=== PATIENT | female | born 1990 | race Caucasian/White ===

== ENCOUNTER → 2017-10-24 | Outpatient (REF) | payer MEDICAID ==
[~2017-10-24] MED LIST: ACE3 PO; ACE500 PO; AUG875 PO; BACDS PO; BUPR-472 PO; BUTA1CAP6 PO; HYDR2TAB4 PO; IBU800 PO; IBUP800T37 PO; LOR5 PO; METH0.2T6 PO; METO-734 PO; NO; NO ROUTINE MEDS; PHENA100 PO; PHENA200 PO; PREN-67 PO; PREN-85 PO
[2017-10-24 14:07] LABS: PLATELET COUNT, AUTOMATED 231 K/uL (150-450)
== END ==
LOC: ZZSENDIN 13:02
PROVIDERS: ATTEND Obstetrics & Gynecology
DX: R10.2 Pelvic and perineal pain (principal)
CPT/HCPCS: 85025; 87071; 87077; 87088; 87186

== ENCOUNTER 2018-02-08 08:27 | Emergency (ER) | payer SELFPAY ==
--- NOTE | 2018-02-08 08:28 | ER Report ---
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 Patient is now currently approximately 9 weeks and noticed vaginal bleeding this morning. Patient denies any trauma. She also notes that when she urinates there may be blood as well and has symptoms of increased urinary frequency and suprapubic tenderness. She denies any fevers or chills. She denies any chest pain or shortness of breath. She denies any upper abdominal pain. Patient states her blood type is O- and has received RhoGAM in the past. He lists her OB /FIELD NURSE physician is Dr. Hawthorne REVIEW OF SYSTEMS: Constitutional: No fever, no chills. Eyes: No discharge. ENT: No sore throat. Cardiovascular: No chest pain, no palpitations. Respiratory: No cough, no shortness of breath. Gastrointestinal: Suprapubic abdominal pain Genitourinary: Hematuria/vaginal bleeding; increased urinary frequency Musculoskeletal: No back pain. Skin: No rashes. Neurological: No headache. Allergies: Coded Allergies: penicillin G (Verified Allergy, Intermediate, WHOLE BODY TURNS RED, ) codeine (Verified Allergy, Unknown, 06/05/17) morphine (Verified Allergy, Unknown, 06/05/17) Home Meds Active Scripts Ondansetron Hcl (ZOFRAN) 4 Mg Tablet, 4 MG PO Q8H for Nausea, #15 TAB 0 Refills Prov:KAREN LOCKHART MD 02/08/18 Nitrofurantoin Monohyd/M-Cryst (MACROBID 100 MG CAPSULE) 100 Mg Capsule, 100 MG PO BID for 7 Days, #14 CAPSULE 0 Refills Prov:KAREN LOCKHART MD 02/08/18 Ibuprofen (IBUPROFEN) 800 Mg Tablet, 1 TAB PO Q8H, #30 TAB 0 Refills Take with food every 8 hours. Prov:THIAGO HAWTHORNE MD 06/13/17 Discontinued Reported Medications Bupropion Hcl (WELLBUTRIN XL) 150 Mg Tab.er.24h, 150 MG PO QDAY, TAB 06/10/17 Discontinued Scripts Methylergonovine Mal 0.2 Mg Tab (METHERGINE 0.2 MG TAB) 0.2 Mg Tablet, 0.2 MG PO Q6H, #6 TAB Prov:THIAGO HAWTHORNE MD 06/13/17 Hydromorphone Hcl (HYDROMORPHONE HCL) 2 Mg Tablet, 2-4 MG PO Q4H for PAIN, #20 TAB 0 Refills Prov:THIAGO HAWTHORNE MD 06/13/17 Past Medical/Surgical History Multiparous with last being a twin that ended in a missed , early on in and status post D&C. Hx Smoking: Yes (1 PACK A DAY) Smoking Status: Current: Every Day Smoker Exposure to Second Hand Smoke?: Yes Hx Substance Use Disorder: No Hx Alcohol Use: No Constitutional Vital Sign - Last 24 Hours 02/08/18 02/08/18 02/08/18 08:32 09:58 11:01 Temp 97.9 Pulse 74 77 70 Resp 16 16 B/P (MAP) 122/44 110/72 (85) 102/40 (60) Pulse Ox 97 96 O2 Delivery Room Air Room Air Intake and Output 02/08/18 02/08/18 02/09/18 15:00 23:00 07:00 Output Total 100 ml Balance -100 ml Physical Exam General Appearance: The patient is alert, has no immediate need for airway protection and no signs of toxicity. Eyes: Pupils equal and round no pallor or injection. ENT, Mouth: Mucous membranes are moist. Respiratory: There are no retractions, lungs are clear to auscultation. Cardiovascular: Regular rate and rhythm. Gastrointestinal: There is minor tenderness over the suprapubic region. Neurological: Awake and alert Skin: Warm and dry, no rashes. Musculoskeletal: Neck is supple non tender. Extremities are nontender, nonswollen and have full range of motion. Medical Decision Making Data Points Result Diagram: 02/08/18 1000 02/08/18 0944 Laboratory Hematology Test 02/08/18 09:10 02/08/18 09:44 02/08/18 10:00 Urine Color Red Urine Clarity Slightly-cloudy Urine pH 6.0 pH (4.8-9.5) Urine Specific [place] 1.002 Urine Protein 30 mg/dL (NEGATIVE) Urine Glucose (UA) Negative mg/dL (NEGATIVE) Urine Ketones Negative mg/dL (NEGATIVE) Urine Blood Large (NEGATIVE) Urine Nitrite Negative (NEGATIVE) Urine Bilirubin Negative (NEGATIVE) Urine Urobilinogen Negative mg/dL (0.2-1.9) Urine Leukocyte Esterase Negative (NEGATIVE) Urine RBC 1 /HPF (0-2/HPF) Urine WBC 14 /HPF (0-5/HPF) Urine WBC Clumps Few /HPF Urine Squamous Epithelial Cells Many /LPF (NONE-FEW) Urine Amorphous Crystals Few /HPF Urine Bacteria Few /HPF (NONE-FEW) Urine Mucus None /HPF (NONE-FEW) Sodium Level 138 mmol/L (137-145) Potassium Level 3.8 mmol/L (3.5-5.0) Chloride Level 107 mmol/L (98-107) Carbon Dioxide Level 22 mmol/L (22-31) Blood Urea Nitrogen 8 mg/dl (7-18) Creatinine 0.50 mg/dl (0.52-1.04) Glomerular Filtration Rate Calc > 60.0 Random Glucose 91 mg/dl (75-110) Calcium Level 8.4 mg/dl (8.4-10.2) Total Bilirubin 0.4 mg/dl (0.2-1.3) Aspartate Amino Transf (AST/SGOT) 24 U/L (0-35) Alanine Aminotransferase (ALT/SGPT) 38 U/L (0-56) Alkaline Phosphatase 60 U/L (0-126) Total Protein 6.5 g/dl (6.3-8.2) Albumin 3.4 g/dl (3.5-5.0) Human Chorionic Gonadotropin, Quant 853091 mIU/ml Red Blood Count 4.97 M/uL (4.17-5.56) Mean Corpuscular Volume 82.4 fL (80.0-96.0) Mean Corpuscular Hemoglobin 28.0 pg (26.0-33.0) Mean Corpuscular Hemoglobin Concent 34.0 g/dL (32.0-36.0) Red Cell Distribution Width 15.8 % (11.5-14.5) Mean Platelet Volume 8.0 fL (7.2-11.1) Neutrophils (%) (Auto) 79.6 % (39.4-72.5) Lymphocytes (%) (Auto) 14.0 % (17.6-49.6) Monocytes (%) (Auto) 5.2 % (4.1-12.4) Eosinophils (%) (Auto) 0.5 % (0.4-6.7) Basophils (%) (Auto) 0.7 % (0.3-1.4) Nucleated RBC Relative Count (auto) 0.0 /100WBC Neutrophils # (Auto) 10.0 K/uL (2.0-7.4) Lymphocytes # (Auto) 1.8 K/uL (1.3-3.6) Monocytes # (Auto) 0.7 K/uL (0.3-1.0) Eosinophils # (Auto) 0.1 K/uL (0.0-0.5) Basophils # (Auto) 0.1 K/uL (0.0-0.1) Nucleated RBC Absolute Count (auto) 0.00 K/uL Chemistry Test 02/08/18 09:10 02/08/18 09:44 02/08/18 10:00 Urine Color Red Urine Clarity Slightly-cloudy Urine pH 6.0 pH (4.8-9.5) Urine Specific [place] 1.002 Urine Protein 30 mg/dL (NEGATIVE) Urine Glucose (UA) Negative mg/dL (NEGATIVE) Urine Ketones Negative mg/dL (NEGATIVE) Urine Blood Large (NEGATIVE) Urine Nitrite Negative (NEGATIVE) Urine Bilirubin Negative (NEGATIVE) Urine Urobilinogen Negative mg/dL (0.2-1.9) Urine Leukocyte Esterase Negative (NEGATIVE) Urine RBC 1 /HPF (0-2/HPF) Urine WBC 14 /HPF (0-5/HPF) Urine WBC Clumps Few /HPF Urine Squamous Epithelial Cells Many /LPF (NONE-FEW) Urine Amorphous Crystals Few /HPF Urine Bacteria Few /HPF (NONE-FEW) Urine Mucus None /HPF (NONE-FEW) Glomerular Filtration Rate Calc > 60.0 Calcium Level 8.4 mg/dl (8.4-10.2) Total Bilirubin 0.4 mg/dl (0.2-1.3) Aspartate Amino Transf (AST/SGOT) 24 U/L (0-35) Alanine Aminotransferase (ALT/SGPT) 38 U/L (0-56) Alkaline Phosphatase 60 U/L (0-126) Total Protein 6.5 g/dl (6.3-8.2) Albumin 3.4 g/dl (3.5-5.0) Human Chorionic Gonadotropin, Quant 945971 mIU/ml White Blood Count 12.6 k/uL (4.5-11.0) Red Blood Count 4.97 M/uL (4.17-5.56) Hemoglobin 13.9 g/dL (12.0-16.0) Hematocrit 41.0 % (34.0-47.0) Mean Corpuscular Volume 82.4 fL (80.0-96.0) Mean Corpuscular Hemoglobin 28.0 pg (26.0-33.0) Mean Corpuscular Hemoglobin Concent 34.0 g/dL (32.0-36.0) Red Cell Distribution Width 15.8 % (11.5-14.5) Platelet Count 181 K/uL (150-450) Mean Platelet Volume 8.0 fL (7.2-11.1) Neutrophils (%) (Auto) 79.6 % (39.4-72.5) Lymphocytes (%) (Auto) 14.0 % (17.6-49.6) Monocytes (%) (Auto) 5.2 % (4.1-12.4) Eosinophils (%) (Auto) 0.5 % (0.4-6.7) Basophils (%) (Auto) 0.7 % (0.3-1.4) Nucleated RBC Relative Count (auto) 0.0 /100WBC Neutrophils # (Auto) 10.0 K/uL (2.0-7.4) Lymphocytes # (Auto) 1.8 K/uL (1.3-3.6) Monocytes # (Auto) 0.7 K/uL (0.3-1.0) Eosinophils # (Auto) 0.1 K/uL (0.0-0.5) Basophils # (Auto) 0.1 K/uL (0.0-0.1) Nucleated RBC Absolute Count (auto) 0.00 K/uL Urinalysis Test 02/08/18 09:10 Urine Color Red Urine Clarity Slightly-cloudy Urine pH 6.0 pH (4.8-9.5) Urine Specific [place] 1.002 Urine Protein 30 mg/dL (NEGATIVE) Urine Glucose (UA) Negative mg/dL (NEGATIVE) Urine Ketones Negative mg/dL (NEGATIVE) Urine Blood Large (NEGATIVE) Urine Nitrite Negative (NEGATIVE) Urine Bilirubin Negative (NEGATIVE) Urine Urobilinogen Negative mg/dL (0.2-1.9) Urine Leukocyte Esterase Negative (NEGATIVE) Urine RBC 1 /HPF (0-2/HPF) Urine WBC 14 /HPF (0-5/HPF) Urine WBC Clumps Few /HPF Urine Squamous Epithelial Cells Many /LPF (NONE-FEW) Urine Amorphous Crystals Few /HPF Urine Bacteria Few /HPF (NONE-FEW) Urine Mucus None /HPF (NONE-FEW) ED Course/Re-evaluation Clinical Indication for ER IV: IV Access ED Course 02/08/2018 8:47:15 am plan at this time will be to evaluate for threatened . We will obtain a catheter urine specimen to determine location of the bleeding. Patient is O- so we will do ABO Rh and give appropriate dose of RhoGAM. We'll also perform a formal ultrasound to evaluate for . Re-evaluation 02/08/2018 11:00:00 am patient with viable IUP with normal heart rate no evidence of vaginal fluid collection or blood. My suspicion is the bleeding is coming from a hemorrhagic cystitis based on patient's symptoms along with urinalysis. We will treat her with Macrobid for the next 7 days and have her follow up routinely with her OB. Decision to Disposition Date: Feb 08, 2018 Decision to Disposition Time: 11:01 Depart Departure Latest Vital Signs Vital Signs Date Time Temp Pulse Resp B/P (MAP) Pulse Ox O2 Delivery O2 Flow Rate FiO2 02/08/18 11:01 70 16 102/40 (60) 96 Room Air 02/08/18 08:32 97.9 Impression: Primary Impression: Hemorrhagic cystitis Condition: Improved Disposition: HOME OR SELF-CARE Referrals: BRITTA PLAZA MD (PCP) THIAGO HAWTHORNE MD Follow-up with Dr. Hawthorne for your next routine OB appointment New Scripts Ondansetron Hcl (ZOFRAN) 4 Mg Tablet 4 MG PO Q8H for Nausea, #15 TAB 0 Refills Prov: KAREN LOCKHART MD 02/08/18 Nitrofurantoin Monohyd/M-Cryst (MACROBID 100 MG CAPSULE) 100 Mg Capsule 100 MG PO BID for 7 Days, #14 CAPSULE 0 Refills Prov: KAREN LOCKHART MD 02/08/18 Patient Instructions: Urinary Tract Infection in (ED) KAREN LOCKHART MD Feb 08, 2018 08:28
[2018-02-08 10:09] LABS: PLATELET COUNT, AUTOMATED 181 K/uL (150-450)
[2018-02-08] MEDS ORDERED: NITROFURANTOIN MONO 100 MG PO ONE ×2 (11:00→13:15)
[2018-02-08 11:01] VITALS: BP 102/40
[2018-02-08] MEDS ORDERED: NITR-105 PO (11:04)
[2018-02-08] MEDS ORDERED: ONDA4TAB97 PO (11:05)
--- NOTE | 2018-02-08 11:21 | RADIOLOGY IMAGING REPORT ---
FACILITY: [facility] PATIENT NAME: Lynda Jernigan : 1990 MR: [id number] V: [id number] EXAM DATE: ORDERING PHYSICIAN: KAREN LOCKHART TECHNOLOGIST: Location: Patient: Lynda Jernigan : 1990 Visit/Account:[id number] Date of Sevice: 02/08/2018 OB Ultrasound < 14 weeks Additional Pertinent history: Vaginal bleeding. Early . COMPARISON STUDIES: None available FINDINGS: Gestational sac: intrauterine and unremarkable Yolk sac: Visualized pole: Visualized cardiac activity: 165-170 bpm Estimated gestational age: 9 weeks and one day based on average [place]-rump length of 2.38 cm. BETSY: 09/12/2018 by ultrasound and clinically. Subchorionic hemorrhage: There is small subchorionic hemorrhage adjacent to the right side of the ges tational sac. This measures approximately 2.7 x 0.9 cm. Uterus: gravid, otherwise negative Maternal ovaries: Both ovaries are normal with normal blood flow. Left ovary shows a corpus luteum cy st. Adnexa: No adnexal mass lesion or focal abnormality. Free pelvic fluid: none IMPRESSION: 1. Single live early intrauterine gestation with dates and measurements as above 2. Small subchorionic hemorrhage adjacent to the right side of the gestational sac. Report Dictated By: Milton Rincon at 02/08/2018 11:13 AM Report E-Signed By: Milton Rincon at 02/08/2018 11:16 AM WSN:[id number]
[2018-02-08] MEDS ORDERED: ONDANSETRON 4 MG ODT TH SL ONE (13:15)
== END 2018-02-08 11:15 | disposition home or self-care (01) ==
LOC: ER 09:03
DX: O23.11 Infections of bladder in pregnancy, first trimester (principal); Z3A.09 9 weeks gestation of pregnancy
CPT/HCPCS: 36415; 76817; 81001; 84702; 85025; 86850; 86900; 86901; 87077; 87088; 87186; 99284; A4353; S0119; 82040; 82247; 82310; 82374; 82435; 82565; 82947; 84075; 84132; 84155; 84295; 84450; 84460; 84520

== ENCOUNTER → 2018-07-17 | Outpatient (CLI) | payer MEDICAID ==
[~2018-07-17] MED LIST changes: +CALC-521 PO; +DIPH0.5D12 IM; +NITR-105 PO; +ONDA4TAB97 PO; +PREN-127 PO; +RHO(150015 IM
[2018-07-17 16:54] VITALS: BP 137/68
--- NOTE | 2018-07-17 17:45 | RADIOLOGY IMAGING REPORT ---
FACILITY: [facility] PATIENT NAME: Lynda Jernigan : 1990 MR: [id number] V: [id number] EXAM DATE: [id number] ORDERING PHYSICIAN: VINAY RUBIO TECHNOLOGIST: Location: [facility] Patient: Lnyda Jernigan : 1990 Visit/Account:[id number] Date of Sevice: 07/17/2018 OB Ultrasound > 14 weeks limited. HISTORY: Growth discrepancy. Evaluate REJI and growth. COMPARISON STUDIES: 02/08/2018. FINDINGS: Intrauterine gestations: one presentation: Breech heart rate: 124 bpm Amniotic fluid index: 13.8. cm Largest amniotic fluid pocket 5.9 cm Placenta: Fundal anteriorly without focal abnormality and without previa. However heterogeneous and p ossible small calcifications. Uterus: gravid, otherwise normal Maternal adnexa: Not evaluated Cervix: Not evaluated Gestational Parameters: BPD: 8 point cm 35 weeks and 4 days HC: 31.7 cm 35 weeks and 5 days AC: 32.5 cm 36 weeks and 3 days FL: 6.4 cm 33 weeks and 0 days Average ultrasound age (AUA): 35 weeks and 2 days BETSY: 08/19/2018 by ultrasound and 09/15/2018 clinically. Estimated weight (EFW): 2650 g, 5 pounds and 13 ounces. EFW: Greater than 98 percentile Anatomic Survey: Not performed due to limited exam. IMPRESSION: 1. Single live intrauterine gestation; estimated ultrasound age 35 weeks and 2 days. 2. The estimated weight is greater than 98 percentile. 3. Amniotic fluid index: 13.8. cm Largest amniotic fluid pocket 5.9 cm 4. Other findings and measurements as above. Report Dictated By: Milton Rincon at 07/17/2018 5:38 PM Report E-Signed By: Milton Rincon at 07/17/2018 5:41 PM WSN:[id number]
[2018-07-19 23:16] VITALS: Ht 149.9 cm
== END ==
LOC: L&D 15:32 → OB 15:32 → UNDOADMIN 15:32 → UNDODISIN 18:26 → EDSTATUS 07-20 11:02
PROVIDERS: ATTEND Obstetrics & Gynecology
DX: O26.893 Other specified pregnancy related conditions, third trimester (principal); Z3A.32 32 weeks gestation of pregnancy
CPT/HCPCS: 76815; 80305; 81001; 87081

== ENCOUNTER → 2018-07-19 | Outpatient (CLI) | payer MEDICAID ==
[~2018-07-19] VITALS: Ht 175.3 cm; Wt 104.3 kg
[2018-07-19 20:50] VITALS: BP 135/79
[2018-07-19] MEDS: NIFEdipine 10 MG CAP PO ONE (21:57)
[2018-07-19 23:16] VITALS: Ht 175.3 cm; Wt 104.3 kg
== END ==
LOC: UNDOADMIN 20:46 → L&D 20:46 → OB 20:46 → UNDODISIN 23:07 → EDSTATUS 07-20 11:05
PROVIDERS: ATTEND Obstetrics & Gynecology
DX: O26.893 Other specified pregnancy related conditions, third trimester (principal); Z3A.31 31 weeks gestation of pregnancy
CPT/HCPCS: 59025

== ENCOUNTER → 2018-07-20 | Outpatient (CLI) | payer MEDICAID ==
[2018-07-19 23:16] VITALS: BMI 34.0
[2018-07-20 14:37] LABS: PLATELET COUNT, AUTOMATED 211 K/uL (150-450)
== END ==
LOC: LAB 13:30
PROVIDERS: ATTEND Student in an Organized Health Care Education/Training Program
DX: Z34.92 Encounter for supervision of normal pregnancy, unspecified, second trimester (principal)
CPT/HCPCS: 36415; 82950; 85025; 86703

== ENCOUNTER → 2018-07-21 | Outpatient (CLI) | payer MEDICAID ==
[~2018-07-21] VITALS: Ht 175.3 cm; Wt 166.5 kg
[~2018-07-21] MED LIST changes: +CALCIUM CARBONATE 500 MG CHEW PO ONE; +DLR(*) 1000 ML BAG 1,000 ML IV ONE; +NIFEdipine 10 MG CAP PO ONE; +ONDANSETRON 4 MG/2 ML VIAL IVP ONE
[2018-07-21 22:50] VITALS: BP 154/38; Ht 175.3 cm; Wt 166.5 kg
[2018-07-22] MEDS: LR(*) 1000 ML BAG 1,000 ML IV PRN ×2 (00:43→02:01)
[2018-07-22 00:57] LABS: PLATELET COUNT, AUTOMATED 189 K/uL (150-450)
== END ==
LOC: UNDOADMOB 22:23 → L&D 22:23 → OB 22:23 → UNDODISOB 07-22 02:21 → EDSTATUS 07-24 19:21
PROVIDERS: ATTEND Obstetrics & Gynecology
DX: O36.8131 Decreased fetal movements, third trimester, fetus 1 (principal); Z3A.32 32 weeks gestation of pregnancy
CPT/HCPCS: 36415; 81001; 82040; 82247; 82310; 82374; 82435; 82565; 82570; 82731; 82947; 83615; 84075; 84132; 84155; 84156; 84295; 84450; 84460; 84520; 84550; 85025; G0378; G0379; J2405; J7120

== ENCOUNTER → 2018-08-07 | Outpatient (CLI) | payer MEDICAID ==
[~2018-08-07] VITALS: Ht 175.3 cm; Wt 168.7 kg
[~2018-08-07] MED LIST changes: -CALCIUM CARBONATE 500 MG CHEW PO ONE; -DLR(*) 1000 ML BAG 1,000 ML IV ONE; +FAMOTIDINE 20 MG TAB PO ONE; -NIFEdipine 10 MG CAP PO ONE; -ONDANSETRON 4 MG/2 ML VIAL IVP ONE
[2018-08-07 20:51] LABS: PLATELET COUNT, AUTOMATED 226 K/uL (150-450)
--- NOTE | 2018-08-07 21:25 | History & Physical ---
History of Present Illness Age of Patient: 28 : 9 Para or TPAL: 4044 EDC per LMP: Sep 15, 2018 EDC per U/S: Sep 14, 2018 Estimated Gestational Age: 34.3 Chief Complaint RUQ abdominal pain. History of Present Illness Seen in OB triage due to RUQ abdominal pain, sharp and stabbing without radiation that was intermittent when it started a few weeks ago, now constant for the last week. She called the office earlier this afternoon, but could not come in for an office visit before the office closed. Pain is worse when lying on her side. She denies and spicy or greasy food intolerances, also denies fever, chills, constipation, diarrhea, melena, hematochezia, hematuria, dysuria, urinary urgency or frequency. However, she complains of heartburn the whole , now refractory to TUMS and H2 blockers, and hasn't yet tried PPI's. She also has increased generalized edema (face, hands, and feet) over the last week, and shortness of breath as well. She's had decreased movements of only x1-2 per day the last few days, although patient's nurse has noted activity while trying to obtain an adequate FHR monitor strip. She's also had irregular contractions, but denies any recent vaginal mucous or fluid leakage. History Patient's Blood Type: O Negative Rubella Status: Immune Group B Strep Screen: Unknown Obstetrical History: 4 vaginal deliveries between 37 and 41 weeks, the last complicated by PP hemorrhage, and 4 early spontaneous Ab's. Past Medical History: Hx depression, also abnormal Paps, s/p cervical LEEP. Post appendectomy and tonsillectomy. Allergies: Coded Allergies: penicillin G (Verified Allergy, Intermediate, WHOLE BODY TURNS RED, 06/05/17) codeine (Verified Allergy, Unknown, 06/05/17) morphine (Verified Allergy, Unknown, 06/05/17) Social History: Engaged to be , partner not present. Recently quit smoking cigarettes, denies use of alcohol or illicit drugs. Family History: FH: anemia MOTHER FH: cancer MOTHER FH: type 2 diabetes MOTHER Med Rec Home Meds Active Scripts Ondansetron Hcl (ZOFRAN) 4 Mg Tablet, 4 MG PO Q8H for Nausea, #15 TAB 0 Refills Prov:KAREN LOCKHART MD 02/08/18 Reported Medications Vits W-Ca,Fe,Fa(<1MG) ( VITAMINS) 1 Each Tablet, 1 EACH PO DAILY, TAB 07/22/18 Calcium Carbonate (TUMS) 300 Mg Tab.chew, 300 MG PO, TAB.CHEW 07/22/18 Review of Systems All Systems Reviewed/Normal: Yes, Except as Noted Constitutional: Weight Gain (excessive weight gain of about ) Respiratory: Shortness of Breath Gastrointestinal: Abdominal Pain Psychiatric: Depression (chronic) Exam General Exam General Apperance: Alert/Awake/No Acute Distress Neuro: No Gross deficits ENT: Normal, Moist Mucous Membranes, Posterior Pharynx Clear Neck: No Masses Cardiovascular: Regular Rate and Rhythm Respiratory: No Respiratory Distress, Clear to Auscultation, Other (O2 sat 94-95%) Abdomen: RUQ Tender (+Newton sign), Fundus - Non-Tender, Active Bowel Sounds : No CVA Tenderness Musculoskeletal: No Weakness/Pain Extremities: Reflexes (1-2+ ), Edema (trace-1+ pedal); No Tender Calves Psychological: Alert & Oriented X3, Appropriate Mood & Affect (but somewhat flat affect) Fetus Heart Tones: 130 (unable to get an adequate FHR monitor strip, so cannot classify strip) Medical Decision Making Data Points Result Diagram: 08/07/18203208/07/182032 VTE Prophylasis: Adult Pharmacological Contraindicati: Pt at Low Risk for VTE Mechanical Contraindications: Pt at Low Risk for VTE Assessment and Plan Problems: (1) with 34 completed weeks gestation (2) RUQ abdominal pain Assessment & Plan: Will draw labs to rule out HELLP syndrome. If those are negative, and if we can get a Cat 1 monitor strip, will likely discharge home. Will consider scheduling a RUQ ultrasound for possible GB disease. (3) GERD (gastroesophageal reflux disease) Assessment & Plan: Since her GERD is refractory to TUMS at this point, will try Pepcid, then possibly a PPI if that is ineffective. CECILLE BERNARD MD Aug 07, 2018 20:45
[2018-08-07 22:05] VITALS: BP 143/65
--- NOTE | 2018-08-07 22:10 | Labor Progress Note ---
Labor Subjective Progress Notes Subjective Still insignificant irregular contractions. Now feeling more activity. Labor Objective Fetus Heart Tones: 130 Heart Tone Variabilty: Moderate FHT Accelerations: Present FHT Decelerations: None FHT Category: I (adequate monitor strip obtained) General Exam General Appearance: Other (BP's mostly 130/60's.) Other Result Diagram: 08/07/18203208/07/182032 Lab Normal UA, with insignificant protein on random protein/creatinine evaluation. Normal CBC, CMP (including LFT's), and LDH. Assessment and Plan Problems: (1) with 34 completed weeks gestation Assessment & Plan: Will discharge home, to keep appointment with Dr. Grey in 6 days. (2) RUQ abdominal pain Assessment & Plan: Pre-eclampsia and HELLP are ruled out at this time. Patient might still have GB disease. She will call the office on Friday or Friday (whenever it's next open) to schedule a RUQ abdominal US exam. In the meantime, if she has more symptoms of RUQ pain, she might have to return to the hospital for potential urgent/emergency care. (3) GERD (gastroesophageal reflux disease) Assessment & Plan: Trial of Pepcid. If that is ineffective, she will try oral OTC Omeprazole. She will discuss her symptoms with Dr. Grey at her next visit in 6 days. Copies to: BRITTA GREY MD ; Problem Qualifiers (1) GERD (gastroesophageal reflux disease): Esophagitis presence: esophagitis presence not specified Qualified Codes: K21.9 - Gastro-esophageal reflux disease without esophagitis CECILLE BERNARD MD Aug 07, 2018 22:10
[2018-08-07 23:31] VITALS: Ht 175.3 cm; Wt 168.7 kg
== END ==
LOC: L&D 18:26 → UNDOADMIN 18:30 → OB 18:30 → UNDODISIN 22:17
PROVIDERS: ATTEND Obstetrics & Gynecology
DX: O26.893 Other specified pregnancy related conditions, third trimester (principal); R10.11 Right upper quadrant pain; Z3A.34 34 weeks gestation of pregnancy
CPT/HCPCS: 36415; 59025; 81001; 82040; 82247; 82310; 82374; 82435; 82565; 82570; 82947; 83615; 84075; 84132; 84155; 84156; 84295; 84450; 84460; 84520; 85025

== ENCOUNTER → 2018-08-19 | Outpatient (REF) | payer MEDICAID ==
[2018-08-07 23:31] VITALS: BMI 54.9
[~2018-08-19] MED LIST changes: -FAMOTIDINE 20 MG TAB PO ONE
== END ==
LOC: ZZSENDIN 12:19
PROVIDERS: ATTEND Nurse Practitioner Family
DX: O42.90 Premature rupture of membranes, unspecified as to length of time between rupture and onset of labor, unspecified weeks of gestation (principal)
CPT/HCPCS: 84112

== ENCOUNTER 2018-08-22 20:40 | Inpatient (IN) | payer MEDICAID ==
[~2018-08-22] VITALS: Ht 172.7 cm; Wt 172.4 kg
[2018-08-22 21:00] VITALS: Ht 172.7 cm; Wt 172.4 kg
[2018-08-22] MEDS ORDERED: NIFEdipine 10 MG CAP PO PRN ×2 (21:35→21:50)
[2018-08-22] MEDS ORDERED: NS(*) 0.9% 1000 ML BAG 1,000 ML IV ONE (21:45)
[2018-08-22] MEDS ORDERED: NS(*) 0.9% 1000 ML BAG 1,000 ML ONE (21:46)
[2018-08-22 22:28] LABS: PLATELET COUNT, AUTOMATED 219 K/uL (150-450)
[2018-08-22] MEDS ORDERED: LR(*) 1000 ML BAG 1,000 ML IV PRN (22:45)
[2018-08-22] MEDS ORDERED: ceFAZolin 1 GM VIAL IVPB ONE (22:55)
[2018-08-22] MEDS ORDERED: FAMOTIDINE(*) 20MG/50ML PREMIX 50 ML IVPB PRN (22:58)
[2018-08-22] MEDS ORDERED: ceFAZolin(*) 1 GM VIAL 3 GM in NS(*) 0.9% 100 ML BAG 100 ML IVPB ONE (23:00)
[2018-08-22] MEDS ORDERED: METOCLOPRAMIDE 10 MG/2 ML SDV IVP PRN (23:00)
--- NOTE | 2018-08-22 23:07 | History & Physical ---
History of Present Illness EDC per LMP: Sep 15, 2018 Estimated Gestational Age: 36.4 Chief Complaint Contractions History of Present Illness 28yo at 36w2d by LMP consistent with 8wk ultrasound presents with regular uterine contractions. She has been having painful contractions all afternoon. Fetus has been in the breech presentation this entire . She has an appointment scheduled next week to discuss delivery options with Dr. Grey. Her PNC is by [facility], although she had one appointment with Dr. Lemos in 07/2018 for possible transfer. She has the following complications with : -Morbid obesity: Pre- BMI 48. Current BMI 57 with weight ~378# and height 68". 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 -Breech presentation: Although she has a history of 4 SVDs, her largest was 7#5oz and she reports Dr. Grey estimated 7#7oz at last ultrasound. Therefore, she is not an excellent candidate for breech vaginal delivery. -Rh negative: Rhophylac given 07/20/18. -Tobacco use: She is a current every day smoker and smokes 1.5 packs per day. -Hx cervical dysplasia: She had a LEEP just prior to this and had a c olpo for LSIL this . -Chronic depression: No medications at this time. We reviewed her allergies: Morphine - anaphylaxis, Codeine - headache (she has tolerated perocet in the past), PCN - rash or hives at 13yo but no anaphylaxis (she can't recall if she has taken cephalosporins History Patient's Blood Type: O Negative Rubella Status: Immune Group B Strep Screen: Unknown Obstetrical History: Hx of 4 SVDs at [facility] (Largest 7#5oz) Hx 4 SABs Past Medical History: See PNR Allergies: Coded Allergies: penicillin G (Verified Allergy, Intermediate, WHOLE BODY TURNS RED, 06/05/17) codeine (Verified Allergy, Unknown, 06/05/17) morphine (Verified Allergy, Unknown, 06/05/17) Social History: Engaged. Reports tobacco use. No ETOH/drugs currently. Family History: FH: anemia MOTHER FH: cancer MOTHER FH: type 2 diabetes MOTHER Med Rec Home Meds Active Scripts Ondansetron Hcl (ZOFRAN) 4 Mg Tablet, 4 MG PO Q8H for Nausea, #15 TAB 0 Refills Prov:KASARDA,KAREN C MD 02/08/18 Reported Medications Vits W-Ca,Fe,Fa(<1MG) ( VITAMINS) 1 Each Tablet, 1 EACH PO DAILY, TAB 07/22/18 Calcium Carbonate (TUMS) 300 Mg Tab.chew, 300 MG PO, TAB.CHEW 07/22/18 Review of Systems Constitutional: No Fever Neurological: No Syncope Eyes: No Vision Change Cardiovascular: No Chest Pain Respiratory: No Shortness of Breath Gastrointestinal: No Nausea, No Vomiting, No Diarrhea Genitourinary: No Dysuria Musculoskeletal: No Pain Psychiatric: Depression; No Anxiety Exam General Exam Vital Signs VS reviewed General Apperance: Alert/Awake/No Acute Distress Neuro: No Gross deficits Eyes: Normal Extraocular Movement & Vison Respiratory: No Respiratory Distress Abdomen: Gravid - Non-Tender : Normal Musculoskeletal: No Weakness/Pain Extremities: No Cyanosis,Clubbing or Edema Integumentary: Skin Intact without Lesions or Rash Psychological: Alert & Oriented X3, Appropriate Mood & Affect Cervical Dialation: 2.5 Cervical Effacement (%): 80 Cervical Consistency: Soft Cervical Position: Mid Presentation: Single Footling Breech Uterine Contractions(Q min): 2 Uterine Contraction Strength: Strong UC Resting Tone: Soft Fetus Feeling Movement?: Yes FHT Category: I Medical Decision Making Imaging Ultrasound/Imaging Bedside ultrasound by myself shows single footling breech Pre-Admit Course Medical Record Review: Yes VTE Prophylasis: Adult Deep Vein Thrombosis/Pulmonary: No Assessment and Plan Problems: (1) Breech presentation Assessment & Plan: 28yo at 36w2d by LMP consistent with 8wk ultrasound presents with regular uterine contractions. She has had cervical change and despite procardia 20mg has continued to contract painfully every 2-3 minutes. Due to footling breech, she is at high risk of cord prolapse if ROM occurs. She is morbidly obese and a poor candidate for emergent procedures. Radha Verde is present and has evaluated the patient. She will try to place CSE in the operating room. If unsuccessful, Dr. Oates has been notified and will be present for general anesthesia. We have discussed the increased risks of surgery and anesthesia with the patient, particularly considering her BMI. However, since this baby is already estimated to be larger than her biggest delivered vaginally, she is not a candidate for vaginal breech. She will be prepared for the operating room and will plan delivery by . (2) Obesity affecting Assessment & Plan: As above. (3) Rh negative status during Assessment & Plan: Rhophylac given 07/20/18. (4) 36 weeks gestation of Assessment & Plan: Pt is in labor and breech. Delivery as above. She has not had steroids. Dr. Sky has been notified. Problem Qualifiers (1) Breech presentation: Fetus number: single or unspecified fetus Qualified Codes: O32.1XX0 - Maternal care for breech presentation, not applicable or unspecified (2) Obesity affecting : Trimester: third trimester Qualified Codes: O99.213 - Obesity complicating , third trimester (3) Rh negative status during : Trimester: third trimester Qualified Codes: O26.893 - Other specified related conditions, third trimester; Z67.91 - Unspecified blood type, rh negative VINAY RUBIO MD Aug 22, 2018 23:07
[2018-08-22] MEDS ORDERED: fentaNYL CITR 100 MCG/2 ML AMP ONE (23:08)
[2018-08-23] VITALS (11 sets, daily range): BP systolic 102–141; BP diastolic 50–66
[2018-08-23] MEDS ORDERED: OXYTOCIN 10 UNIT/ML SDV ONE ×3 (00:20→00:47)
[2018-08-23] MEDS ORDERED: LIDO/EPI 2% MPF 1:200,000 20ML ONE (00:47)
[2018-08-23] MEDS ORDERED: KETOROLAC 30 MG/ML VIAL ONE (00:47)
--- NOTE | 2018-08-23 00:52 | Post Operative Note ---
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
[2018-08-23] MEDS ORDERED: OXYTOCIN 30 UNIT/LR 500 ML 500 ML IV PRN (00:58)
[2018-08-23] MEDS ORDERED: DLR(*) 1000 ML BAG 1,000 ML IV PRN (00:58)
[2018-08-23] MEDS ORDERED: PROMETHAZINE 25 MG/ML 1 ML AMP IVP PRN (01:00)
[2018-08-23] MEDS ORDERED: SIMETHICONE 80 MG CHEW CHEW PRN (01:00)
[2018-08-23] MEDS ORDERED: DIPHTH/TETANUS/ACEL. PERTUSSIS IM ONE (01:00)
[2018-08-23] MEDS ORDERED: MEASLES,MUMP,RUBELLA VAC 0.5ML SC ONE (01:00)
[2018-08-23] MEDS ORDERED: INFLUENZA VIRUS VAC 0.5ML SYR IM ONE (01:00)
[2018-08-23] MEDS ORDERED: MAGNESIUM HYDROXIDE* 30ML UDCP PO PRN (01:00)
[2018-08-23] MEDS ORDERED: ACETAMINOPHEN 325 MG TAB PO PRN (01:00)
[2018-08-23] MEDS ORDERED: LANOLIN OINT 7 GM TUBE TP PRN (01:00)
[2018-08-23] MEDS ORDERED: ONDANSETRON 4 MG/2 ML VIAL IV PRN (01:00)
[2018-08-23] MEDS ORDERED: FENTANYL/ROPIVACAINE 100ML BAG 100 ML ONE (01:38)
--- NOTE | 2018-08-23 02:44 | Anesthesia OB Pre-Anes Eval ---
History of Present Illness Anesthesia Start Date: Aug 22, 2018 Anesthesia Start Time: 23:20 OB Anesthesia Diagnosis: primary c/section Current Complication: obesity Complications: Breech EDC: Sep 15, 2018 : 9 Para: 4 Pain Ratin Heart Tones: WNL Result Diagram: 08/22/18 2150 Height (Inches): 68 Weight (Pounds): 380 BMI (kg/m2): 58 Past Medical History Medical History: obesity Surgical History: appendectomy, tonsillectomy, other (D&C) Previous Anesthesia: general Attended Childbirth Classes?: No Hx Anesthesia Reactions: No Hx Family Anesthesia Reaction: No Past Complications: obesity, hemorrhage Home Meds Active Scripts Ondansetron Hcl (ZOFRAN) 4 Mg Tablet, 4 MG PO Q8H for Nausea, #15 TAB 0 Refills Prov:KAREN LOCKHART MD 02/08/18 Reported Medications Vits W-Ca,Fe,Fa(<1MG) ( VITAMINS) 1 Each Tablet, 1 EACH PO DAILY, TAB 07/22/18 Calcium Carbonate (TUMS) 300 Mg Tab.chew, 300 MG PO, TAB.CHEW 07/22/18 Allergies: Coded Allergies: penicillin G (Verified Allergy, Intermediate, WHOLE BODY TURNS RED, 06/05/17) codeine (Verified Allergy, Unknown, 06/05/17) morphine (Verified Allergy, Unknown, 06/05/17) Anesthesia OB ROS Neurological: No migraines/headaches, No seizures, No neuropathy ENT: Denies Tooth caps, Denies Loose teeth, Denies Chipped teeth, Denies Dentures, Denies Bridges, Denies Retainers, Denies Veneers, Denies Implants, Denies Tongue ring; Other (Multiple cavities) Pulmonary: smoker (pks/day/yrs) (admits to 1/2 PPD) Airway Class: lll Cardiovascular ROS: No edema, No arrhythmia GI ROS: clear liquids Last Solids Date: Aug 22, 2018 Last Solids Time: 19:00 ROS: No Herpes, No STD(s), No Liver Disease, No Renal Disease Endocrine ROS: No diabetes, No gestational diabetes, No thyroid disorder Musculoskeletal ROS: No low back pain, No low back injury, No scoliosis ASA Classification: 3 Assessment and Plan Anesthesia Plan: CSE Assessment Thoroughly explained to both pt. and her MSO, plans and procedure for both CSE and GA with ETElva Escobar of each explained, including severe respiratory problems with GA, Ett placement and aspiration. Explained potential difficulties with placing Epidural due to her body size and then GA will be required. She accepts and agrees to proceed. Questions invited and answered. Call Placed to Dr. Sandra Oates, and informed of above plan. He will attempt to be available if unsuccessful with CSE and GA/ETT is required. Anesthesia Stop Day: Aug 23, 2018 ARIC COSBY CRNA Aug 23, 2018 02:44
--- NOTE | 2018-08-23 02:54 | Anesthesia Progress Note ---
Progress/Maintenance Anesthesia Note Date: Aug 23, 2018 Anesthesia Note Time: 02:30 Pain Intensity: 1 Pump: On Pump Rate (ML/HR): 10 Sensory Level: T-12 Motor Level: Other (both legs are heavy, from previous CSE) Position: Semi-Fowlers Drug Bolus: 0.2% Ropivicaine (10 ml), Fentanyl 2mcg/ml Assessment and Plan Assessment Pt. was returned to 306 per bed from PACU. She states she feels her abdomen and uterine massage. Epidural redressed with tegaderm applied and taped more securely. Epidural then connected to pump. Loading dose of 10 ml and rate at 10ml/hr. Discussed pain management with pt. ARIC COSBY CRNA Aug 23, 2018 02:54
[2018-08-23] MEDS ORDERED: NALOXONE HCL 0.4 MG/ML VIAL IV PRN (03:05)
[2018-08-23] MEDS ORDERED: FENTANYL/ROPIVACAINE 100 ML BAG EPI PRN (03:05)
--- NOTE | 2018-08-23 04:49 | OPERATIVE REPORT 1 ---
EVENT DATE: August 23, 2018 SURGEON: Bambi Devlin MD ANESTHESIA: Combined spinal/epidural by Radha Verde CRNA PREOPERATIVE DIAGNOSIS 1. Intrauterine at 30 weeks and 2 days, in labor. 2. Footling breech presentation. POSTOPERATIVE DIAGNOSIS 1. Intrauterine at 30 weeks and 2 days, in labor. 2. Footling breech presentation. 3. Delivery of a viable female infant at 0007 hours, weighing 3366 g or 7 pounds 6 ounces, with Apgars of 8 at one minute and 9 at five minutes. PROCEDURE PERFORMED Primary low transverse delivery. INTRAVENOUS FLUIDS 3000 mL. URINE OUTPUT 250 mL. ESTIMATED BLOOD LOSS 750 mL. INDICATIONS FOR PROCEDURE This patient is a 28-year-old 9, para 4-0-4-4, who presented at 36 weeks and 2 days by last menstrual period, consistent with an 8-week ultrasound, with regular uterine contractions. She was deemed to be in labor despite attempting to stop contractions with hydration and Procardia. The fetus was found to be in the breech presentation. Her was otherwise complicated by morbid obesity, Rh negative, tobacco use, chronic depression, and history of cervical dysplasia. She was counseled on the recommendation for a primary delivery due to breech presentation. After discussing the risks, benefits, and alternatives, the patient elected to proceed. She also had a consultation with Radha Verde to discuss the combined spinal/epidural to assist with postoperative pain relief due to her morphine allergy. DESCRIPTION OF PROCEDURE The patient was properly identified and taken to the operating room. She was administered a combined spinal/epidural anesthetic without difficulty. She was then placed in the supine position, and a Campbell catheter was then placed. She was then placed with a leftward tilt. SCDs were placed and turned on, and she was prepped and draped in the usual fashion for a lower abdominal surgery. She received 3 g of Ancef preoperatively for prophylactic antibiotics. After adequate anesthesia was confirmed, a Pfannenstiel incision was made over the lower abdomen, which was carried down to the level of the rectus fascia. This was noted to be approximately 5 inches deep of subcutaneous tissue. The rectus fascia was then in the midline, and the incision was extended bilaterally. The rectus fascia was then from the underlying rectus muscle to the infraumbilical plane. The peritoneum was then identified and entered with a hemostat without difficulty. This incision was extended in a blunt fashion. A bladder blade was then placed. The vesicouterine peritoneum was relieved off the lower uterine segment. A low transverse incision was made on the lower uterine segment, revealing intact membranes. These membranes were then ruptured with return of clear fluid. The infant's buttocks were then able to be elevated out of the pelvis and delivered through the uterine incision, followed by both legs. The was then delivered up to the axilla, where the anterior arm, which was the left arm, was brought across the anterior chest and delivered through the incision. The infant was then rotated 180 degrees, and the second arm, which was the right arm, was then delivered across the anterior chest without difficulty. The vertex was then delivered without difficulty. The infant did have spontaneous cry, although it took approximately 40 seconds for that cry. There was adequate tone at that time. After the infant was dried, stimulated, and the oropharynx and nasopharynx were bulb-suctioned, the cord was clamped x2 and cut, and the was passed to nursing personnel in good condition. Cord blood was then obtained and passed off the table. The placenta subsequently was delivered manually intact and passed off the table. At this time, the uterus was exteriorized and cleared of any remaining clots or debris. However, closure of the hysterotomy on the exterior aspect of the body would not be amenable to good visualization. Therefore, the uterus was replaced in the abdominal cavity. The paracolic gutters were cleared of clots and debris, and the uterine incision was reapproximated, working from from one apex to the next using 0 Vicryl in a running locking fashion. A second imbricating layer of 0 Monocryl was then utilized along the hysterotomy. Adequate hemostasis was then noted. The peritoneum was then reapproximated using a 3-0 Monocryl followed by reapproximation of the rectus muscle in the midline. The muscle was then copiously irrigated and noted to be hemostatic. The rectus fascia was then reapproximated using an 0 Vicryl in a running nonlocking fashion, working from one apex to the next. The subcutaneous tissue was copiously irrigated. The subcutaneous tissue was then brought together to alleviate space with two layers in the subcutaneous tissue. The skin was then closed with Insorb lily. A Primapore dressing was then placed. The patient tolerated this procedure well and recovered in Labor and Delivery with her infant. All sponge, needle, and instrument counts were correct at the end of this procedure. JUSTINO
--- NOTE | 2018-08-23 07:12 | Anesthesia Progress Note ---
Progress/Maintenance Anesthesia Note Date: Aug 23, 2018 Anesthesia Note Time: 07:00 Pain Intensity: 4 Pump: On Pump Rate (ML/HR): 10 Sensory Level: T-12 Motor Level: Bending Knees-Bilateral Position: Semi-Fowlers Assessment and Plan Assessment Pt. is sitting in bed with HOB elevated well above 45 degrees. Pump remains at 10 ml/hr and she states she has pushed her epidural button " 4 times". She states "it helps after I push it". Vital sign stable. Plan to start oral pain medication prior to turning pump off. ARIC COSBY CRNA Aug 23, 2018 07:12
[2018-08-23] MEDS ORDERED: METOCLOPRAMIDE 10 MG/2 ML SDV ONE (07:13)
[2018-08-23] MEDS ORDERED: FAMOTIDINE(*) 20MG/50ML PREMIX 50 ML IVPB ONE (07:13)
[2018-08-23] MEDS: KETOROLAC 30 MG/ML VIAL IVP SCH ×3 (07:18→19:15)
[2018-08-23] MEDS ORDERED: NS 0.9% IRRIGATION 1000ML PLCT IR ONE (08:17)
[2018-08-23] MEDS ORDERED: oxyCODONE HCL 5 MG CAP PO ONE (08:25)
--- NOTE | 2018-08-23 08:35 | Anesthesia Progress Note ---
Progress/Maintenance Anesthesia Note Date: Aug 23, 2018 Anesthesia Note Time: 08:30 Pain Intensity: 2 Pump: Off Sensory Level: T-12 Motor Level: Bending Knees-Bilateral Position: Semi-Fowlers Assessment and Plan Assessment Epidural infusion complete (100ml infused) Empty syringe attached to epidural catheter and RN agrees to remove with pt's ambulation. Patient instructed the first ambulation is to be with help of nursing staff. Instructed to preform deep knee bends at bedside before walking. Family member at bedside to hear ambulation instructions as well as pt. states she understands to have waitstaff for ambulation. Anesthesia Stop Day: Aug 23, 2018 Anesthesia Stop Time: 08:30 ARIC COSBY CRNA Aug 23, 2018 08:34
[2018-08-23] MEDS: FAMOTIDINE 20 MG TAB PO SCH ×2 (09:29→20:33)
[2018-08-23] MEDS: DOCUSATE CALCIUM 240 MG CAP PO SCH ×2 (09:29→20:33)
--- NOTE | 2018-08-23 09:33 | OB/GYN Progress Note ---
OB Subjective Progress Notes Subjective Doing well. Pain controlled with epidural and Toradol. Tolerating regular diet. Not yet ambulating. Campbell in. Normal lochia. No preeclampsia symptoms. OB Objective Physical Exam Vital Signs Date Time Temp Pulse Resp B/P (MAP) Pulse Ox O2 Delivery O2 Flow Rate FiO2 08/23/18 02:00 97.7 98 20 132/63 (86) 95 Room Air Intake and Output 08/23/18 07:00 Intake Total 750 ml Output Total 75 ml Balance 675 ml Intake IV Total 750 ml Output Urine Total 75 ml General Appearance: Alert/Awake/No Acute Distress Neurological: No Gross deficits Eyes: Normal Extraocular Movement & Vison Cardiovascular: Normal Rhythm & Peripheral Pulses, Regular Rate and Rhythm Respiratory: No Respiratory Distress, Clear to Auscultation Abdomen: Soft, Non-Tender, Non-Distended Incision: Clean, Dry, Intact, Dressing Extremities: No Cyanosis,Clubbing or Edema Integumentary: Skin Intact without Lesions or Rash Psychological: Alert & Oriented X3, Appropriate Mood & Affect Result Diagram: 08/22/182149 Assessment and Plan Problems: (1) Status post delivery Assessment & Plan: POD#0 s/p PLTCD for breech presentation. Doing well. Will transition away from epidural and to Percocet today. (2) Obesity affecting Assessment & Plan: Will continue SCDs while inpatient. Lovenox to be started tomorrow morning since epidural is still in place for now. (3) Rh negative status during Assessment & Plan: Rhophylac evaluation pending. Problem Qualifiers (1) Obesity affecting : Trimester: third trimester Qualified Codes: O99.213 - Obesity complicating , third trimester (2) Rh negative status during : Trimester: third trimester Qualified Codes: O26.893 - Other specified related conditions, third trimester; Z67.91 - Unspecified blood type, rh negative VINAY RUBIO MD Aug 23, 2018 09:33
[2018-08-23] MEDS ORDERED: IBUP800T37 PO (23:25)
[2018-08-23] MEDS ORDERED: OXYC-865 PO (23:25)
[2018-08-24] MEDS: IBUPROFEN 800 MG TAB PO SCH ×2 (01:55→08:53)
[2018-08-24 03:40] VITALS: BP 119/56
[2018-08-24 06:42] LABS: PLATELET COUNT, AUTOMATED 171 K/uL (150-450)
[2018-08-24 07:15] VITALS: BP 136/62
[2018-08-24] MEDS: DOCUSATE CALCIUM 240 MG CAP PO SCH (08:53)
[2018-08-24] MEDS: FAMOTIDINE 20 MG TAB PO SCH (08:53)
[2018-08-24] MEDS ORDERED: ENOXAPARIN 40 MG/0.4ML SYR SC SCH (09:00)
--- NOTE | 2018-08-24 11:21 | OB/GYN Progress Note ---
OB Subjective Progress Notes Subjective Doing good. Tolerating regular diet. Ambulatory. Voiding with out any difficulty. Tolerating regular diet. GI: NEG Nausea, NEG Vomiting, NEG Flatus, NEG Bowel Movement : Voiding Well, Vaginal Bleeding, Scant Pain: Mild, Tolerating PO Pain Meds Neurological: No Headache, No Other Eyes: No Visual Disturbances OB Objective Physical Exam Vital Signs Date Time Temp Pulse Resp B/P (MAP) Pulse Ox O2 Delivery O2 Flow Rate FiO2 08/24/18 07:15 96.6 94 18 136/62 (86) Room Air 08/24/18 03:40 90 Intake and Output 08/24/18 07:00 Intake Total 2283 ml Output Total 1650 ml Balance 633 ml Intake Oral 1260 ml IV Total 1023 ml Output Urine Total 900 ml Estimated Blood Loss 750 ml # Voids 3 General Appearance: Alert/Awake/No Acute Distress Neurological: No Gross deficits Eyes: Normal Extraocular Movement & Vison Cardiovascular: Normal Rhythm & Peripheral Pulses, Regular Rate and Rhythm Respiratory: No Respiratory Distress, Clear to Auscultation Abdomen: Soft, Non-Tender, Non-Distended Incision: Clean, Dry, Intact Extremities: No Cyanosis,Clubbing or Edema Integumentary: Skin Intact without Lesions or Rash Psychological: Alert & Oriented X3, Appropriate Mood & Affect Result Diagram: 08/24/18 0619 Assessment and Plan 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 Follow up in 2 weeks with [facility]. (2) Obesity affecting (3) Rh negative status during Problem Qualifiers (1) Obesity affecting : Trimester: third trimester Qualified Codes: O99.213 - Obesity complicating , third trimester (2) Rh negative status during : Trimester: third trimester Qualified Codes: O26.893 - Other specified related conditions, third trimester; Z67.91 - Unspecified blood type, rh negative ELIAN DUMONT DO Aug 24, 2018 11:21
--- NOTE | 2018-08-24 11:23 | OB/GYN Discharge Summary ---
Discharge Summary Reason for Hosp/Final Diag: (1) Status post delivery Hospital Course & Plan: Presented in PTL and breech. Underwent 1LTCS for breech presentation. Pt remained in the hospital for 2 days post operative. Was meeting all post operative goals. Plan for discharge today. (2) Obesity affecting (3) Rh negative status during Lates Vital Signs Vital Signs Date Time Temp Pulse Resp B/P (MAP) Pulse Ox O2 Delivery O2 Flow Rate FiO2 08/24/18 07:15 96.6 94 18 136/62 (86) Room Air 08/24/18 03:40 90 Weight (Pounds): 380 Result Diagram: 08/24/18618 Condition: Improved Discharge: Home Home Meds Active Scripts Oxycodone Hcl/Acetaminophen (PERCOCET 5-325 MG TABLET) 1 Each Tablet, 1 TAB PO Q4-6H PRN for pain, #20 TAB 0 Refills Prov:VINAY RUBIO MD 08/23/18 Ondansetron Hcl (ZOFRAN) 4 Mg Tablet, 4 MG PO Q8H for Nausea, #15 TAB 0 Refills Prov:KAREN LOCKHART MD 02/08/18 Reported Medications Vits W-Ca,Fe,Fa(<1MG) ( VITAMINS) 1 Each Tablet, 1 EACH PO DAILY, TAB 07/22/18 Calcium Carbonate (TUMS) 300 Mg Tab.chew, 300 MG PO, TAB.CHEW 07/22/18 [facility] [phone], Dr. Grey [phone] Follow up in: 6 wks PP or PO, 2 wks PO Discharge Diet: As Tolerates Discharge Activity: As Tolerates, Pelvic Rest Problem Qualifiers (1) Obesity affecting : Trimester: third trimester Qualified Codes: O99.213 - Obesity complicating , third trimester (2) Rh negative status during : Trimester: third trimester Qualified Codes: O26.893 - Other specified related conditions, third trimester; Z67.91 - Unspecified blood type, rh negative JULIALASTDheeraj MARTINEZ Aug 24, 2018 11:23
--- NOTE | 2018-08-24 13:02 | Anesthesia Post Eval Note ---
Anesthesia Post Eval Note Vital Signs Date Time Temp Pulse Resp B/P (MAP) Pulse Ox O2 Delivery O2 Flow Rate FiO2 08/24/18 07:15 96.6 94 18 136/62 (86) Room Air 08/24/18 03:40 90 Pt able to participate in Eval: Yes Cardiovascular Status: Satisfactory Respiratory Status: Satisfactory Pain Managment: Satisfactory PO Nausea/Vomiting: Satisfactory Temperature Management: Satisfactory Mental Status: Satisfactory, Alert, Oriented X3 Post-Op Hydration Status: Satisfactory, Tolerating PO Well, Voiding w/o Difficulty Anesthesia Type: CSE Anesthesia Tolerance: Tolerated procedure well without apparent anesthetic complications. LP site clear, small bruise above puncture site, no redness or edema. Denies headache or any residual paresthesia. Vital Signs Stable, Patient comfortable and condition stable. ARIC COSBY CRNA Aug 24, 2018 13:02
[2018-08-27] MEDS ORDERED: LOR5/325 PO (14:41)
== END 2018-08-24 15:20 | disposition home or self-care (01) | DRG 787 ==
LOC: OBSVTOIN 20:40 → OB 20:40
PROVIDERS: ADMIT Obstetrics & Gynecology; ATTEND Obstetrics & Gynecology
PROC: 10D00Z1 Extraction of Products of Conception, Low, Open Approach (ICD-10-PCS; principal; 2018-08-23)
DX: O32.1XX0 Maternal care for breech presentation, not applicable or unspecified (principal); O36.0130 Maternal care for anti-D [Rh] antibodies, third trimester, not applicable or unspecified; O99.214 Obesity complicating childbirth; O99.334 Smoking (tobacco) complicating childbirth; E66.01 Morbid (severe) obesity due to excess calories; Z3A.36 36 weeks gestation of pregnancy; Z37.0 Single live birth; Z67.41 Type O blood, Rh negative
CPT/HCPCS: 36415; 83036; 85025; 86703; 86850; 86870; 86900; 86901; J0690; J1650; J1885; J2370; J2405; J2590; J2765; J3010; J3490; J7030; J7050; J7120

== ENCOUNTER → 2018-09-09 | Outpatient (CLI) | payer MEDICAID ==
[2018-08-22 21:00] VITALS: BMI 55.8
[~2018-09-09] MED LIST changes: +LOR5/325 PO; +OXYC-865 PO; +SERT-1 PO; +SULF-198 PO
== END ==
LOC: LAB 14:58
PROVIDERS: ATTEND Student in an Organized Health Care Education/Training Program
DX: T81.49XA Infection following a procedure, other surgical site, initial encounter (principal)
CPT/HCPCS: 87070